=== PATIENT | female | born 1950 | race Caucasian/White ===

== ENCOUNTER 2017-11-29 07:01 | Emergency (ER) | payer BC ==
[2017-11-29] MEDS ORDERED: NEOMYCIN/POLYMYXIN B SULF/HC 10ML BTL OT ONE (07:42)
--- NOTE | 2017-11-29 07:48 | Emergency Department Record ---
History of Present Illness - General Chief complaint: ENT Stated complaint: EAR PAIN Time Seen by Provider: 11/29/17 07:22 Source: Patient Mode of Arrival: Ambulatory Limitations: No limitations - History of Present Illness Initial comments: pt had pain in l ear for the last 2 days which is better now and then this am she woke up and found blood on the sheet. she normally wears hearing aids complaint: Ear pain Onset/Timin -: Days(s) Location: L ear Consistency: Constant Improves with: None Worsens with: None Associated Symptoms: Discharge from ear - Related Data Allergies Allergy/AdvReac Type Severity Reaction Status Date / Time Penicillins Allergy Unknown HIVES Unverified 11/16/14 14:15 acetaminophen Allergy HIVES Verified 11/16/14 14:15 [From Darvocet-N] amoxicillin trihydrate Allergy HIVES Verified 11/16/14 14:15 [From Augmentin] enalapril maleate Allergy HYPERSENSIT Verified 11/16/14 14:15 [From Vasotec] IVITY enalaprilat dihydrate Allergy HYPERSENSIT Verified 11/16/14 14:15 [From Vasotec] IVITY esomeprazole magnesium Allergy HIVES Verified 11/16/14 14:15 [From Nexium] lisinopril Allergy HIVES Verified 11/16/14 14:15 meperidine HCl [From Demerol] Allergy HYPERSENSIT Verified 11/16/14 14:15 IVITY potassium clavulanate Allergy HIVES Verified 11/16/14 14:15 [From Augmentin] propoxyphene napsylate Allergy HIVES Verified 11/16/14 14:15 [From Darvocet-N] sulfamethoxazole AdvReac VOMITING Verified 11/16/14 14:15 [From Bactrim] trimethoprim [From Bactrim] AdvReac VOMITING Verified 11/16/14 14:15 Travel Screening - Travel/Exposure Within Last 30 Days Have you traveled within the last 30 days?: No Review of Systems Reviewed: No additional complaints except as noted below Constitutional: Reports: As per HPI. Denies: Chills, Fever, Malaise, Night sweats, Weakness, Weight change Eyes: Reports: As per HPI. Denies: Eye discharge, Eye pain, Photophobia, Vision change ENT: Reports: As per HPI, Ear pain, Hearing loss. Denies: Congestion, Dental pain, Epistaxis, Throat pain Respiratory: Reports: As per HPI. Denies: Cough, Dyspnea, Hemoptysis, Stridor, Wheezes Cardiovascular: Reports: As per HPI. Denies: Arrhythmia, Chest pain, Dyspnea on exertion, Edema, Murmurs, Orthopnea, Palpitations, Paroxysmal nocturnal dyspnea, Rheumatic Fever, Syncope Endocrine: Reports: As per HPI. Denies: Fatigue, Heat or cold intolerance, Polydipsia, Polyuria Gastrointestinal: Reports: As per HPI. Denies: Abdominal pain, Constipation, Diarrhea, Hematemesis, Hematochezia, Melena, Nausea, Vomiting Genitourinary: Reports: As per HPI. Denies: Abnormal menses, Discharge, Dyspareunia, Dysuria, Frequency, Hematuria, Incontinence, Retention, Urgency Musculoskeletal: Reports: As per HPI. Denies: Arthralgia, Back pain, Gout, Joint swelling, Myalgia, Neck pain Skin: Reports: As per HPI. Denies: Bruising, Change in color, Change in hair/ nails, Lesions, Pruritus, Rash Neurological: Reports: As per HPI. Denies: Abnormal gait, Confusion, Headache, Numbness, Paresthesias, Seizure, Tingling, Tremors, Vertigo, Weakness Psychiatric: Reports: As per HPI. Denies: Anxiety, Auditory hallucinations, Depression, Homicidal thoughts, Suicidal thoughts, Visual hallucinations Hematological/Lymphatic: Reports: As per HPI. 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 - GI Hx Reflux: Yes - Hx Genitourinary Disorders: No - ENDOCRINE Hx Diabetes: No Hx Thyroid Disease: Yes - MUSCULOSKELETAL Hx Arthritis: Yes (spine) - PSYCH Hx Psych Problems: No - HEMATOLOGY/ONCOLOGY Hx Cancer: Yes (1994) Hx Chemotherapy: Yes Hx Radiation Therapy: Yes Family Medical History Any Significant Family History?: No Physical Exam - General General Appearance: Alert, Oriented x3, Cooperative, No acute distress - Head Head exam: Normal inspection - Eye Eye exam: Normal appearance, PERRL, EOMI Pupils: Normal accommodation - ENT ENT exam: Normal exam, Mucous membranes moist, Normal external ear exam, Normal orophraynx, TM's normal bilaterally, Other (partially occluded w cerumen. l canal is tender and slightly erythematous) Ear exam: Normal external inspection. negative: External canal tenderness Nasal Exam: Normal inspection. negative: Discharge, Sinus tenderness Mouth exam: Normal external inspection, Tongue normal Teeth exam: Normal inspection. negative: Dental caries Throat exam: Normal inspection. negative: Tonsillar erythema, Tonsillar exudate - Neck Neck exam: Normal inspection, Full ROM. negative: Tenderness - Respiratory Respiratory exam: Normal lung sounds bilaterally. negative: Respiratory distress - Cardiovascular Cardiovascular Exam: Regular rate, Normal rhythm, Normal heart sounds - GI/Abdominal GI/Abdominal exam: Soft, Normal bowel sounds. negative: Tenderness - Rectal Rectal exam: Deferred - exam: Deferred - Extremities Extremities exam: Normal inspection, Full ROM, Normal capillary refill. negative: Tenderness - Back Back exam: Reports: Normal inspection, Full ROM. Denies: Muscle spasm, Rash noted, Tenderness - Neurological Neurological exam: Alert, CN II-XII intact, Normal gait, Oriented X3 - Psychiatric Psychiatric exam: Normal affect, Normal mood - Skin Skin exam: Dry, Intact, Normal color, Warm Course Vital Signs 11/29/17 07:08 Temperature 97.7 F Pulse Rate [ 76 Pulse Ox Probe] Respiratory 20 Rate Blood Pressure 134/52 [Left Arm] Pulse Ox 97 Disposition Disposition: Discharge Clinical Impression: Otitis externa Qualifiers: Otitis externa type: unspecified type Chronicity: acute Laterality: left Qualified Code(s): H60.502 - Unspecified acute noninfective otitis externa, left ear Disposition: Home, Self-Care Condition: (1) Good Instructions: Otitis Externa (ED) Additional Instructions: follow up with dr loving. return sooner if worse. dont wear hearing aid for 5 days. use 2 drops in l ear 4 times a day for 5 days Referrals: TEVIN LOVING [DOCTOR OF OSTEOPATH] - Quality - Quality Measures Quality Measures: Acute Otitis Externa (>2yr) - AOE: Topical Therapy Quality Measure: Measure #91: Acute Otitis Externa (AOE) AOE: Topical Preparations: < Topical Preparations (Inc. OTC) prescribed for AOE > [9530F] - AOE: Systemic Antimicrobial Therapy Quality Measure: Measure #93: Acute Otitis Externa (AOE) AOE: Systemic Antimicrobial Therapy: < NOT Prescribed Systemic Antimicrobial Therapy > [0235F] - Blood Pressure Screening Does Patient Have Any of the Following: No Blood Pressure Classification: Pre-Hypertensive BP Reading Systolic Measurement: 134 Diastolic Measurement: 52 Screening for High Blood Pressure: < Pre-Hypertensive BP, F/U Documented > [ G8929] Pre-Hypertensive Follow-up Interventions: Follow-up with rescreen every year.
== END 2017-11-29 08:05 | disposition home or self-care (01) ==
LOC: ER 07:01
DX: H60.502 Unspecified acute noninfective otitis externa, left ear (principal); H61.22 Impacted cerumen, left ear; I25.2 Old myocardial infarction
CPT/HCPCS: 99282

== ENCOUNTER 2018-05-18 18:13 | Emergency (ER) | payer BC, MEDICARE ==
--- NOTE | 2018-05-18 18:34 | Emergency Department Record ---
History of Present Illness - General Chief Complaint: Fall Injury Stated Complaint: FELL 3 WEEKS AGO, LEFT SIDE HURTS WORSE TODAY Time Seen by Provider: 05/18/18 18:30 Source: Patient Mode of Arrival: Ambulatory Limitations: No limitations - History of Present Illness Initial Comments: 67 yo female presents to ED for evaluation of left sided pelvic and upper leg pain following a fall 3 weeks ago. Patient reports that she has been able to weight bear, however she has been using a walker due to her pain symptoms. Patient denies numbness, tingling, or extremity weakness. Patient denies other injury on examination. Complaint: Fall Onset/Timin -: Week(s) Fall From: Standing When Fall Occurred: # Days [employer] Fall Witnessed: No Place Fall Occurred: Home Loss of Consciousness: None Prolonged Down Time?: No Symptoms Prior to Fall: None Severity: Moderate Severity scale (1-10): 5 Quality: Aching Associated Symptoms: Denies - [place] Coma Scale Eye Response: (4) Open spontaneously Motor Response: (6) Obeys commands Verbal Response: (5) Oriented Colbert Total: 15 - Related Data Allergies Allergy/AdvReac Type Severity Reaction Status Date / Time Penicillins Allergy Unknown HIVES Verified 05/18/18 18:19 acetaminophen Allergy HIVES Verified 05/18/18 18:19 [From Darvocet-N] amoxicillin trihydrate Allergy HIVES Verified 05/18/18 18:19 [From Augmentin] enalapril maleate Allergy HYPERSENSIT Verified 05/18/18 18:19 [From Vasotec] IVITY enalaprilat dihydrate Allergy HYPERSENSIT Verified 05/18/18 18:19 [From Vasotec] IVITY esomeprazole magnesium Allergy HIVES Verified 05/18/18 18:19 [From Nexium] lisinopril Allergy HIVES Verified 05/18/18 18:19 meperidine HCl [From Demerol] Allergy HYPERSENSIT Verified 05/18/18 18:19 IVITY potassium clavulanate Allergy HIVES Verified 05/18/18 18:19 [From Augmentin] propoxyphene napsylate Allergy HIVES Verified 05/18/18 18:19 [From Darvocet-N] sulfamethoxazole AdvReac VOMITING Verified 05/18/18 18:19 [From Bactrim] trimethoprim [From Bactrim] AdvReac VOMITING Verified 05/18/18 18:19 Travel Screening - Travel/Exposure Within Last 30 Days Have you traveled within the last 30 days?: Yes Location Detail:: [place] - Travel/Exposure Within Last Year Have you traveled outside the [place] in the last year?: No - Additonal Travel Details Have you been exposed to anyone with a communicable illness?: No - Travel Symptoms Symptom Screening: None Review of Systems Constitutional: Denies: Chills, Fever, Malaise, Night sweats Eyes: Denies: Eye discharge, Eye pain ENT: Denies: Congestion, Ear pain, Epistaxis Respiratory: Denies: Cough, Dyspnea Cardiovascular: Denies: Chest pain, Dyspnea on exertion Endocrine: Denies: Fatigue, Heat or cold intolerance Gastrointestinal: Denies: Abdominal pain, Nausea, Vomiting Genitourinary: Denies: Incontinence, Retention Musculoskeletal: Reports: Arthralgia. Denies: Back pain, Gout, Joint swelling Skin: Denies: Bruising, Change in color Neurological: Denies: Abnormal gait, Confusion, Headache, Seizure Psychiatric: Denies: Anxiety Hematological/Lymphatic: Denies: Anemia, Blood Clots Past Medical History - SOCIAL HISTORY Smoking Status: Never smoker Alcohol Use: None Drug Use: None - RESPIRATORY Hx Respiratory Disorders: Yes Hx Asthma: Yes (saesonal) - CARDIOVASCULAR Hx Cardio Disorders: Yes Hx Cardiac Cath: Yes (2010) Hx Heart Attack: Yes - NEURO Hx Neuro Disorders: Yes Hx Headaches: Yes Comment:: myopia since 11 years old - GI Hx GI Disorders: Yes Hx Reflux: Yes - Hx Genitourinary Disorders: No - ENDOCRINE Hx Endocrine Disorders: Yes Hx Diabetes: No Hx Thyroid Disease: Yes - MUSCULOSKELETAL Hx Musculoskeletal Disorders: Yes Hx Arthritis: Yes (spine) - PSYCH Hx Psych Problems: No - HEMATOLOGY/ONCOLOGY Hx Hematology/Oncology Disorders: Yes Hx Cancer: Yes (1994) Hx Chemotherapy: Yes Hx Radiation Therapy: Yes Family Medical History Any Significant Family History?: No Physical Exam - General General Appearance: Alert, Oriented x3, Cooperative, Mild distress Limitations: No limitations - Head Head exam: Atraumatic, Other (STS to the left upper/lateral neck, per patient chronic gland swelling.) Head exam detail: negative: Abrasion, Contusion, Owens's sign, General tenderness, Hematoma, Laceration - Eye Eye exam: Normal appearance. negative: Conjunctival injection, Periorbital swelling, Periorbital tenderness, Scleral icterus - ENT Ear exam: negative: Auricular hematoma, Auricular trauma Nasal Exam: negative: Active bleeding, Discharge, Dried blood, Foreign body Mouth exam: negative: Drooling, Laceration, Muffled voice, Tongue elevation - Neck Neck exam: Normal inspection. negative: Meningismus, Tenderness - Respiratory Respiratory exam: Normal lung sounds bilaterally. negative: Rales, Respiratory distress, Rhonchi, Stridor - Cardiovascular Cardiovascular Exam: Regular rate, Normal rhythm, Normal heart sounds - GI/Abdominal GI/Abdominal exam: Soft. negative: Rebound, Rigid, Tenderness - Rectal Rectal exam: Deferred - exam: Deferred - Extremities Extremities exam: Tenderness (TTP to the left lateral/superior femur on examination). negative: Calf tenderness, Pedal edema - Back Back exam: Denies: CVA tenderness (R), CVA tenderness (L) - Neurological Neurological exam: Alert, Normal gait, Oriented X3 - Psychiatric Psychiatric exam: Normal affect, Normal mood - Skin Skin exam: Normal color. negative: Abrasion Type of lesion: negative: abrasion Course Vital Signs 05/18/18 18:21 Temperature 98 F Pulse Rate 94 H Respiratory 16 Rate Blood Pressure 151/76 Pulse Ox 100 - Reevaluation(s) Reevaluation #1: 05/18/18 19:48 CT Pelvis: Impacted femoral neck fracture Chronic deformity of the pubic symphysis Cystic mass pelvis Left femur: Impacted femoral neck fracture [facility] 1-call contacted for transfer. Reevaluation #2: 05/18/18 20:11 Laboratory studies were reviewed and are grossly unremarkable for an acute process. Case was discussed with Dr. Gutierrez and Dr. Goldman, will accept transfer for surgical evaluation. Medical Decision Making - Lab Data Result diagrams: 05/18/18 19:46 05/18/18 19:46 Disposition Disposition: Transfer Clinical Impression: Femoral neck fracture Qualifiers: Encounter type: initial encounter Fracture type: closed Laterality: left Qualified Code(s): S72.002A - Fracture of unspecified part of neck of left femur , initial encounter for closed fracture Disposition: Home, Self-Care Transfer To: [facility] Reason For Transfer: Orthopedic consultation Accepting Physician: Matt Time Discussed w/Accepting Physician: 19:54 Condition: (2) Stable Forms: Patient Portal Access Time of Disposition: 19:54 Quality - Quality Measures Quality Measures: N/A - Blood Pressure Screening Does Patient Have Any of the Following: Active Dx of HTN Blood Pressure Classification: Hypertensive Reading Systolic Measurement: 151 Diastolic Measurement: 76 Screening for High Blood Pressure: Patient Exclusion, Hx of HTN [G9744]
[2018-05-18] MEDS ORDERED: ACETAMINOPHEN 1,000 MG/100 ML BTL IVPB ONE (19:32)
[2018-05-18 19:50] LABS: BASO % 0.4 % (0-6); EOS % 3.7 % (0-6); HEMATOCRIT 38.9 % (35.0-47.0); HEMOGLOBIN 11.9 gm/dl (11.6-16.0); LYMPH % 27.5 % (16-45); MEAN CELL VOLUME 84.2 fl (81-97); MEAN CORPUSCULAR HEMOGLOBIN 25.8 pg (27-33); MEAN CORPUSCULAR HGB CONC 30.6 g/dl (32-36); MEAN PLATELET VOLUME 10.9 fl (7.4-10.4); MONO % 6.4 % (0-9); PLATELET COUNT 240 K/uL (130-400); RED BLOOD COUNT 4.62 M/uL (3.80-5.40); RED CELL DISTRIBUTION WIDTH 13.7 % (11.5-14.5); WHITE BLOOD COUNT W/O DIFF 5.5 K/uL (4.2-12.2)
[2018-05-18 20:00] LABS: BILIRUBIN,TOTAL 0.4 mg/dL (0.2-1.0); CREATININE 1.3 mg/dL (0.5-0.9); TOTAL PROTEIN 7.5 g/dL (6.6-8.7)
[2018-05-18 20:05] LABS: ALB/GLOB RATIO 1.4 (1.1-1.8); ALBUMIN 4.4 g/dL (4.0-5.0)
--- NOTE | 2018-05-20 14:26 | CT SCAN REPORT ---
EXAM: CT SCAN OF THE PELVIS WITHOUT CONTRAST HISTORY: FELL THREE WEEKS AGO. LEFT HIP AND LEG PAIN. TECHNIQUE: Standard CT imaging of the pelvis was performed in the axial plane without contrast. Additional coronal and sagittal reformatted images were also performed. Comparison: 10/30/11. Encounter: Initial. FINDINGS: There is an impacted fracture of the left femoral neck. There is mild apex anterior angulation. There is no significant displacement. There is no dislocation. There are old healed fractures of the anterior pubic bones bilaterally. There is chronic deformity of the pubic symphysis. Arthritic changes are present within the lower lumbar spine and sacroiliac joints. There are old compression deformities of the L4 and L5 vertebral bodies. The L4 and L5 and vertebral bodies are fused. There is a large cystic structure within the pelvis located superior to the urinary bladder. This may represent an ovarian cyst. This area measures 11.9 x 11 x 11.3 cm. The urinary bladder is unremarkable. IMPRESSION: 1. IMPACTED LEFT FEMORAL NECK FRACTURE. 2. 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 3. LARGE CYSTIC MASS WITHIN THE PELVIS ABOVE THE URINARY BLADDER. JOB NUMBER: [id number] MTDD
--- NOTE | 2018-05-20 14:30 | RADIOLOGY REPORT ---
EXAM: LEFT FEMUR HISTORY: FELL THREE WEEKS AGO. LEFT FEMUR PAIN. TECHNIQUE: AP and lateral views of the left femur were obtained. Comparison: Previous AP pelvis dated 10/30/11. Encounter: Initial. FINDINGS: There is an impacted fracture of the left femur neck. There is no dislocation or significant displacement. There is chronic deformity of the pubic symphysis which is unchanged. The distal femur appears intact. The bones are severely osteopenic. IMPRESSION: IMPACTED LEFT FEMORAL NECK FRACTURE. [facility]BER: [id number] [facility]
== END 2018-05-18 20:51 | disposition short-term general hospital (02) ==
LOC: ER 18:13
DX: S72.092A Other fracture of head and neck of left femur, initial encounter for closed fracture (principal); N94.89 Other specified conditions associated with female genital organs and menstrual cycle; W19.XXXA Unspecified fall, initial encounter; Y92.009 Unspecified place in unspecified non-institutional (private) residence as the place of occurrence of the external cause; I25.2 Old myocardial infarction; I10 Essential (primary) hypertension
CPT/HCPCS: 72192; 80053; 85025; 96365; 99285